=== PATIENT | female | born 1985 | race Caucasian/White ===

== ENCOUNTER 2017-06-11 08:01 | Day surgery (SDC) | payer OTHER ==
[~2017-06-11] VITALS: Ht 162.6 cm; Wt 161.5 kg
[~2017-06-11 08:01] MED LIST: ALOE VERA25 MG PO; CAT S CLAW PO; CETIRIZINE HCL10 M2 PO; IP-6 INOSITOL PO; LIVER CARE PO; MILK THISTLE175 MG PO; MULTIVITAMIN1 EAC2 PO; OMEGA 3 500 SO1 EACH PO; PROBIOTIC1 EAC1 PO; Turmeric PO; [UNRECOGNIZED DRUG - OTHER] PO
[2017-06-16] MEDS ORDERED: COMPAZINE10 MG PO (09:29)
[2017-06-16] MEDS ORDERED: ZOFRAN8 MG PO (09:29)
== END 2017-06-11 10:17 | disposition home or self-care (01) ==
LOC: CATH 08:01
DX: Z45.2 Encounter for adjustment and management of vascular access device (principal); I87.8 Other specified disorders of veins; C11.9 Malignant neoplasm of nasopharynx, unspecified; J45.909 Unspecified asthma, uncomplicated
CPT/HCPCS: C1751; C1894; J0690; J1644; J2250; J3010; S0020

== ENCOUNTER 2017-06-13 14:15 | Day surgery (SDC) | payer OTHER ==
[~2017-06-13] VITALS: Ht 162.6 cm; Wt 117.4 kg
[2017-06-13 14:51] VITALS: BP 167/100
[2017-06-13] MEDS ORDERED: NORCO 5/3251 TABLET PO (18:14)
[2017-06-13 19:17] VITALS: BP 170/88
[2017-06-13 20:20] VITALS: BP 151/87
[2017-06-13 22:46] VITALS: BP 140/86
[2017-06-14 07:15] VITALS: BP 121/74
[2017-06-16] MEDS ORDERED: ZOFRAN8 MG PO (09:29)
[2017-06-16] MEDS ORDERED: COMPAZINE10 MG PO (09:29)
== END 2017-06-14 18:16 | disposition home or self-care (01) ==
LOC: SDC 14:15 → 2SOUTH 18:00 → ENRESERV 21:49 → 5EAST 22:28 → ENPENDDIS 06-14 → 5EAST 06-14 18:16
PROC: 0DH63UZ Insertion of Feeding Device into Stomach, Percutaneous Approach (ICD-10-PCS; principal; 2017-06-13)
DX: R13.10 Dysphagia, unspecified (principal); C11.9 Malignant neoplasm of nasopharynx, unspecified; E66.01 Morbid (severe) obesity due to excess calories; Z68.41 Body mass index [BMI] 40.0-44.9, adult; J45.909 Unspecified asthma, uncomplicated; Z91.018 Allergy to other foods
CPT/HCPCS: G0378; J0690; J1170; J3010

== ENCOUNTER 2017-08-03 02:47 | Inpatient (IN) | payer OTHER ==
[~2017-08-03] VITALS: Ht 162.6 cm; Wt 112.8 kg
[~2017-08-03 02:47] MED LIST changes: +COMPAZINE10 MG PO; +NORCO 5/3251 TABLET PO; +ZOFRAN8 MG PO
[2017-08-03 03:31] LABS: HEMATOCRIT 31.3 % (36.0-46.0); HEMOGLOBIN 10.4 G/DL (11.9-15.5); MCH 28.7 PG (29.0-34.0); MCHC 33.2 G/DL (30.0-36.0); MCV 86.5 FL (83-99); RBC DIS.WIDTH-CV 16.9 % (11.8-14.6); RBC DIS.WIDTH-SD 50.9 % (39-53); RED BLOOD COUNT 3.62 M/uL (3.80-5.20)
[2017-08-03 03:32] LABS: WHITE BLOOD COUNT 1.9 K/uL (4.1-10.2)
[2017-08-03 03:34] LABS: CHLORIDE 99 mEq/L (99-109); POTASSIUM 3.6 mEq/L (3.7-5.4); SODIUM 135 mEq/L (136-147)
[2017-08-03 03:36] LABS: GLUCOSE 98 mg/dL (70-99)
[2017-08-03 03:40] LABS: CREATININE 0.7 mg/dL (0.6-1.3); GFR ESTIMATE (CALCULATED) > 59 mL/min/
[2017-08-03 03:41] LABS: UREA NITROGEN (BUN) 6 mg/dL (9-23)
[2017-08-03 04:57] LABS: PLATELET COUNT 308 K/uL (156-360)
[2017-08-03 05:22] LABS: ALBUMIN 3.7 g/dL (3.2-4.8)
[2017-08-03 05:24] LABS: TOTAL PROTEIN 6.9 g/dL (6.4-8.3)
[2017-08-03 05:26] LABS: TOTAL BILIRUBIN 0.3 mg/dL (0.0-1.0)
[2017-08-03 05:27] LABS: ALKALINE PHOSPHATASE 62 IU/L (3-129)
[2017-08-03 05:30] LABS: ALT (GPT) 20 IU/L (3-49); AST (GOT) 16 IU/L (2-34); DIRECT BILIRUBIN 0.2 mg/dL (0.0-0.3)
[2017-08-03 05:30] LABS: APPEARANCE SL.HAZY ((CLEAR)); BILIRUBIN NEGATIVE; BLOOD SMALL; COLOR YELLOW ((YELLOW)); GLUCOSE (STRIP) NEGATIVE; KETONES 20; LEUKOCYTES NEGATIVE; NITRITE NEGATIVE; PROTEIN (STRIP) NEGATIVE; SPECIFIC GRAVITY 1.009 (1.000-1.030); UROBILINOGEN 0.2 MG/DL (0.2-1.0)
[2017-08-03 05:33] LABS: ANISOCYTOSIS 1+; BASOPHIL (%) 1.1 % (0-1); EOSINOPHIL (%) 3.2 % (0-5); EOSINOPHIL COUNT 0.1 K/uL (0-0.3); IMMATURE GRANULOCYTE (%) 0.5 % (0.0-0.7); LYMPHOCYTE (%) 14.7 % (15-42); LYMPHOCYTE COUNT 0.3 K/uL (1.0-2.8); MACROCYTES 1+; MONOCYTE (%) 22.1 % (3-12); MONOCYTE COUNT 0.4 K/uL (0-0.8); NEUTROPHIL (%) 58.4 % (45-76); NEUTROPHIL COUNT 1.1 K/uL (1.8-6.4); PLAT.SUFFICIENCY ADEQUATE; POLYCHROMASIA 1+
[2017-08-03 05:35] LABS: BACTERIA RARE /HPF; EPITHELIAL CELLS RARE /HPF; MUCUS TRACE /LPF; RED BLOOD CELLS 0-5 /HPF (0-5); UCUL ADDED? NO; WHITE BLOOD CELLS 0-5 /HPF (0-5)
[2017-08-03 05:37] LABS: QUANTITATIVE HCG < 4.0 MIU/ML
[2017-08-03] MEDS ORDERED: OXYCODONE H5 MG/5 ML PO (08:41)
[2017-08-03] MEDS ORDERED: ATIVAN INTE2 MG/1 ML PO (08:46)
[2017-08-03] MEDS ORDERED: SALAGEN5 MG PO (08:55)
[2017-08-03 10:12] VITALS: BP 176/95
[2017-08-03 15:30] VITALS: BP 124/87
[2017-08-03 20:19] VITALS: BP 145/91
[2017-08-04 01:32] VITALS: BP 137/81
[2017-08-04 06:02] LABS: HEMATOCRIT 28.4 % (36.0-46.0); HEMOGLOBIN 9.4 G/DL (11.9-15.5); MCH 28.7 PG (29.0-34.0); MCHC 33.1 G/DL (30.0-36.0); MCV 86.9 FL (83-99); PLATELET COUNT 294 K/uL (156-360); RBC DIS.WIDTH-CV 17.1 % (11.8-14.6); RBC DIS.WIDTH-SD 52.3 % (39-53); RED BLOOD COUNT 3.27 M/uL (3.80-5.20)
[2017-08-04 06:24] LABS: CHLORIDE 101 MEQ/L (99-109); CREATININE 0.6 MG/DL (0.6-1.3); GFR ESTIMATE (CALCULATED) > 59 mL/min/; GLUCOSE 96 mg/dL (70-99); SODIUM 136 MEQ/L (136-147); UREA NITROGEN (BUN) 4 mg/dL (9-23)
[2017-08-04 07:24] VITALS: BP 146/90
[2017-08-04 11:16] VITALS: BP 136/82
[2017-08-04 17:14] VITALS: BP 138/88
[2017-08-04 20:24] VITALS: BP 140/90
[2017-08-05 02:45] VITALS: BP 135/75
[2017-08-05 04:54] VITALS: BP 145/67
[2017-08-05 07:05] VITALS: BP 134/65
[2017-08-05 09:33] LABS: BASOPHIL (%) 0.9 % (0-1); EOSINOPHIL (%) 1.8 % (0-5); HEMATOCRIT 31.4 % (36.0-46.0); IMMATURE GRANULOCYTE (%) 0.5 % (0.0-0.7); LYMPHOCYTE (%) 11.1 % (15-42); LYMPHOCYTE COUNT 0.2 K/uL (1.0-2.8); MCH 27.9 PG (29.0-34.0); MCHC 31.8 G/DL (30.0-36.0); MCV 87.5 FL (83-99); MONOCYTE (%) 20.3 % (3-12); MONOCYTE COUNT 0.4 K/uL (0-0.8); NEUTROPHIL (%) 65.4 % (45-76); NEUTROPHIL COUNT 1.4 K/uL (1.8-6.4); PLATELET COUNT 308 K/uL (156-360); RBC DIS.WIDTH-CV 17.2 % (11.8-14.6); RBC DIS.WIDTH-SD 53.7 % (39-53); RED BLOOD COUNT 3.59 M/uL (3.80-5.20); WHITE BLOOD COUNT 2.2 K/uL (4.1-10.2)
[2017-08-05 10:00] LABS: CHLORIDE 97 MEQ/L (99-109); CREATININE 0.6 MG/DL (0.6-1.3); GFR ESTIMATE (CALCULATED) > 59 mL/min/; GLUCOSE 123 mg/dL (70-99); POTASSIUM 4.1 MEQ/L (3.7-5.4); SODIUM 137 MEQ/L (136-147); UREA NITROGEN (BUN) 5 mg/dL (9-23)
[2017-08-05 11:03] VITALS: BP 129/71
[2017-08-05 15:13] VITALS: BP 131/85
[2017-08-05 19:23] VITALS: BP 140/88
[2017-08-06] VITALS: BP 138/85
[2017-08-06 05:45] LABS: BASOPHIL (%) 0.3 % (0-1); EOSINOPHIL (%) 1.8 % (0-5); EOSINOPHIL COUNT 0.1 K/uL (0-0.3); HEMOGLOBIN 10.5 G/DL (11.9-15.5); IMMATURE GRANULOCYTE (%) 0.3 % (0.0-0.7); LYMPHOCYTE (%) 9.4 % (15-42); LYMPHOCYTE COUNT 0.3 K/uL (1.0-2.8); MCH 28.5 PG (29.0-34.0); MCHC 31.8 G/DL (30.0-36.0); MCV 89.4 FL (83-99); MONOCYTE (%) 22.2 % (3-12); MONOCYTE COUNT 0.7 K/uL (0-0.8); NEUTROPHIL COUNT 2.2 K/uL (1.8-6.4); PLATELET COUNT 322 K/uL (156-360); RBC DIS.WIDTH-CV 17.3 % (11.8-14.6); RBC DIS.WIDTH-SD 55.6 % (39-53); RED BLOOD COUNT 3.69 M/uL (3.80-5.20); WHITE BLOOD COUNT 3.3 K/uL (4.1-10.2)
[2017-08-06 06:27] LABS: CHLORIDE 95 MEQ/L (99-109); CREATININE 0.6 MG/DL (0.6-1.3); GFR ESTIMATE (CALCULATED) > 59 mL/min/; GLUCOSE 130 mg/dL (70-99); POTASSIUM 4.4 MEQ/L (3.7-5.4); SODIUM 136 MEQ/L (136-147); UREA NITROGEN (BUN) 6 mg/dL (9-23)
[2017-08-06 08:10] VITALS: BP 140/83
[2017-08-06 11:38] VITALS: BP 144/88
[2017-08-06 16:20] VITALS: BP 134/93
[2017-08-06 19:30] VITALS: BP 142/81
[2017-08-07 00:26] VITALS: BP 148/74
[2017-08-07 05:58] LABS: HEMATOCRIT 30.4 % (36.0-46.0); HEMOGLOBIN 9.6 G/DL (11.9-15.5); MCH 28.1 PG (29.0-34.0); MCHC 31.6 G/DL (30.0-36.0); MCV 88.9 FL (83-99); PLATELET COUNT 285 K/uL (156-360); RBC DIS.WIDTH-CV 17.2 % (11.8-14.6); RBC DIS.WIDTH-SD 54.6 % (39-53); RED BLOOD COUNT 3.42 M/uL (3.80-5.20); WHITE BLOOD COUNT 2.9 K/uL (4.1-10.2)
[2017-08-07 06:19] LABS: CHLORIDE 95 MEQ/L (99-109); CREATININE 0.6 MG/DL (0.6-1.3); GFR ESTIMATE (CALCULATED) > 59 mL/min/; GLUCOSE 142 mg/dL (70-99); POTASSIUM 3.8 MEQ/L (3.7-5.4); SODIUM 137 MEQ/L (136-147); UREA NITROGEN (BUN) 7 mg/dL (9-23)
[2017-08-07 06:25] LABS: ABS NEUTROPHIL COUNT 2.1; ANISOCYTOSIS 1+; BAND NEUTROPHILS 18.4 % (0-8.0); BASOPHILS 2.6 %; EOSINOPHIL ABS CT 0.1; EOSINOPHILS 1.8 % (0-5.0); MACROCYTES 1+; MICROCYTOSIS 1+; MONOCYTES 14.9 % (0-9.0); SEG.NEUTROPHILS 55.3 % (46.0-76.0)
[2017-08-07 08:18] VITALS: BP 140/92
[2017-08-07 12:01] VITALS: BP 140/94
[2017-08-07 16:24] VITALS: BP 154/98
[2017-08-07 21:19] VITALS: BP 136/87
[2017-08-08] VITALS: BP 137/87
[2017-08-08 06:07] LABS: EOSINOPHIL (%) 2.8 % (0-5); EOSINOPHIL COUNT 0.1 K/uL (0-0.3); HEMATOCRIT 32.4 % (36.0-46.0); HEMOGLOBIN 10.2 G/DL (11.9-15.5); IMMATURE GRANULOCYTE (%) 0.3 % (0.0-0.7); LYMPHOCYTE (%) 9.3 % (15-42); LYMPHOCYTE COUNT 0.3 K/uL (1.0-2.8); MCH 28.2 PG (29.0-34.0); MCHC 31.5 G/DL (30.0-36.0); MCV 89.5 FL (83-99); MONOCYTE (%) 27.3 % (3-12); MONOCYTE COUNT 0.8 K/uL (0-0.8); NEUTROPHIL (%) 59.3 % (45-76); NEUTROPHIL COUNT 1.7 K/uL (1.8-6.4); PLATELET COUNT 303 K/uL (156-360); RBC DIS.WIDTH-CV 17.2 % (11.8-14.6); RBC DIS.WIDTH-SD 55.1 % (39-53); RED BLOOD COUNT 3.62 M/uL (3.80-5.20); WHITE BLOOD COUNT 2.9 K/uL (4.1-10.2)
[2017-08-08 06:40] LABS: CHLORIDE 97 MEQ/L (99-109); CREATININE 0.6 MG/DL (0.6-1.3); GFR ESTIMATE (CALCULATED) > 59 mL/min/; GLUCOSE 120 mg/dL (70-99); POTASSIUM 4.7 MEQ/L (3.7-5.4); SODIUM 141 MEQ/L (136-147); UREA NITROGEN (BUN) 8 mg/dL (9-23)
[2017-08-08 07:43] VITALS: BP 135/81
[2017-08-08] MEDS ORDERED: SENNA PLUS TAB1 EACH GT (12:30)
[2017-08-08] MEDS ORDERED: DOCU LIQUI50 MG/5 ML GT (12:30)
[2017-08-08] MEDS ORDERED: ZOFRAN8 MG PO (12:31)
[2017-08-08] MEDS ORDERED: BISAC-EVAC10 MG PR (12:31)
[2017-08-08] MEDS ORDERED: FAMOTIDINE20 MG GT (12:32)
[2017-08-08] MEDS ORDERED: ACIDOPHILUS LA1 EACH GT (12:32)
[2017-08-08] MEDS ORDERED: FENTANYL1 EAC5 TD (12:36)
[2017-08-08] MEDS ORDERED: LIDOCAINE20 MG/1 M5 PO (12:36)
[2017-08-08] MEDS ORDERED: Magic Mouthwash Garg MM (12:36)
[2017-08-08] MEDS ORDERED: OXYCODONE H5 MG/5 ML PO (12:36)
[2017-08-08] MEDS ORDERED: Robitussin AC,Tussi- GT (12:36)
[2017-08-08 12:45] VITALS: BP 148/84
== END 2017-08-08 14:46 | disposition home or self-care (01) | DRG 809 ==
LOC: EME 02:47 → 5EAST 06:05 → EDOF 06:05 → ENRESERV 06:08 → 5EAST 07:47
PROVIDERS: Hospitalist; Internal Medicine
DX: D70.9 Neutropenia, unspecified (principal); B37.89 Other sites of candidiasis; E66.01 Morbid (severe) obesity due to excess calories; K12.33 Oral mucositis (ulcerative) due to radiation; B37.0 Candidal stomatitis; C11.9 Malignant neoplasm of nasopharynx, unspecified; Y84.2 Radiological procedure and radiotherapy as the cause of abnormal reaction of the patient, or of later complication, without mention of misadventure at the time of the procedure; Z92.3 Personal history of irradiation; Z93.1 Gastrostomy status; R50.81 Fever presenting with conditions classified elsewhere; K20.8 Other esophagitis; N39.490 Overflow incontinence; L59.8 Other specified disorders of the skin and subcutaneous tissue related to radiation; E86.0 Dehydration; Z68.41 Body mass index [BMI] 40.0-44.9, adult; K59.00 Constipation, unspecified; G89.3 Neoplasm related pain (acute) (chronic); F41.9 Anxiety disorder, unspecified; J98.11 Atelectasis; R09.02 Hypoxemia; N39.41 Urge incontinence; R13.10 Dysphagia, unspecified
CPT/HCPCS: 71045; 71046; 71275; 80048; 80076; 81003; 83605; 84702; 85025; 85027; 87040; 94799; 96360; 96361; 99281; 99285; J1170; J1650; J2060; J2405; J2543; J7030; J7050; Q0164

== ENCOUNTER → 2017-10-10 | Outpatient (CLI) | payer OTHER ==
[~2017-10-10] MED LIST changes: +ACIDOPHILUS LA1 EACH GT; +ATIVAN INTE2 MG/1 ML PO; +BISAC-EVAC10 MG PR; +CLOTRIMAZOLE10 MG PO; +DOCU LIQUI50 MG/5 ML GT; +FAMOTIDINE20 MG GT; +FENTANYL1 EAC5 TD; +LIDOCAINE20 MG/1 M5 PO; +Magic Mouthwash Garg MM; +OXYCODONE H5 MG/5 ML PO; +PILOCARPINE HCL5 MG PO; +Robitussin AC,Tussi- GT; +SALAGEN5 MG PO; +SENNA PLUS TAB1 EACH GT
== END | disposition home or self-care (01) ==
LOC: AMB 10:22
PROC: 0JPT3WZ Removal of Totally Implantable Vascular Access Device from Trunk Subcutaneous Tissue and Fascia, Percutaneous Approach (ICD-10-PCS; principal; 2017-10-10)
PROC: 02PYX3Z Removal of Infusion Device from Great Vessel, External Approach (ICD-10-PCS; principal; 2017-10-10)
DX: Z45.2 Encounter for adjustment and management of vascular access device (principal); I87.8 Other specified disorders of veins; Z92.21 Personal history of antineoplastic chemotherapy